=== PATIENT | female | born 1970 | race Caucasian/White ===

== ENCOUNTER 2022-06-04 02:58 | Inpatient (IN) | payer MEDICARE, OTHER ==
[~2022-06-04] VITALS: Ht 157.5 cm; Wt 81.4 kg
[2022-06-04 05:17] LABS: HEMOGLOBIN 16.4 gm/dl (12.3-15.3); RED BLOOD COUNT 5.25 M/UL (4.00-5.10)
[2022-06-04 05:26] LABS: WHITE BLOOD COUNT 32.7 K/UL (4.5-11.0)
[2022-06-04 06:00] LABS: BUN/CREATININE RATIO 17 (0-10)
[2022-06-04] MEDS ORDERED: SULFAMETHOXAZO1 EACH PO (09:19)
[2022-06-04] MEDS ORDERED: NAPROXEN500 MG PO (09:19)
[2022-06-04] MEDS ORDERED: COZAAR 25MG TAB25 MG PO (09:20)
[2022-06-04] MEDS ORDERED: PROVENTIL HFA6.7 GM INH (09:20)
[2022-06-04] MEDS ORDERED: HYDROCHLOROTHIA25 MG PO (09:21)
[2022-06-05 07:02] LABS: BUN/CREATININE RATIO 22 (0-10)
[2022-06-05 07:35] LABS: RED BLOOD COUNT 4.59 M/UL (4.00-5.10); WHITE BLOOD COUNT 33.5 K/UL (4.5-11.0)
[2022-06-06 06:12] LABS: RED BLOOD COUNT 4.44 M/UL (4.00-5.10); WHITE BLOOD COUNT 28.8 K/UL (4.5-11.0)
[2022-06-06 06:43] LABS: BUN/CREATININE RATIO 18 (0-10)
[2022-06-07 06:38] LABS: HEMOGLOBIN 12.9 gm/dl (12.3-15.3); RED BLOOD COUNT 4.32 M/UL (4.00-5.10)
[2022-06-07 07:09] LABS: BUN/CREATININE RATIO 14 (0-10)
[2022-06-08 07:24] LABS: HEMOGLOBIN 14.5 gm/dl (12.3-15.3); WHITE BLOOD COUNT 18.9 K/UL (4.5-11.0)
[2022-06-08 07:25] LABS: RED BLOOD COUNT 4.77 M/UL (4.00-5.10)
[2022-06-08 07:44] LABS: BUN/CREATININE RATIO 12 (0-10)
[2022-06-09 02:59] LABS: HEMOGLOBIN 13.1 gm/dl (12.3-15.3); RED BLOOD COUNT 4.3 M/UL (4.00-5.10); WHITE BLOOD COUNT 20.4 K/UL (4.5-11.0)
[2022-06-09 03:25] LABS: BUN/CREATININE RATIO 15 (0-10)
[2022-06-10 06:20] LABS: HEMOGLOBIN 13.5 gm/dl (12.3-15.3); RED BLOOD COUNT 4.5 M/UL (4.00-5.10); WHITE BLOOD COUNT 16.8 K/UL (4.5-11.0)
[2022-06-10 07:10] LABS: BUN/CREATININE RATIO 12 (0-10)
[2022-06-11 06:56] LABS: HEMOGLOBIN 13.5 gm/dl (12.3-15.3); RED BLOOD COUNT 4.49 M/UL (4.00-5.10); WHITE BLOOD COUNT 15.2 K/UL (4.5-11.0)
[2022-06-11 07:21] LABS: BUN/CREATININE RATIO 12 (0-10)
[2022-06-11] MEDS ORDERED: LEVOFLOXACIN500 MG PO (17:10)
[2022-06-11] MEDS ORDERED: TOPROL XL25 MG PO (17:10)
[2022-06-11] MEDS ORDERED: HYDROCODON-ACE1 EAC4 PO (17:10)
[2022-06-11] MEDS ORDERED: CLINDAMYCIN HC300 MG PO (17:10)
[2022-06-11] MEDS ORDERED: NICOTINE PATCH1 EAC2 TD (17:10)
[2022-06-11] MEDS ORDERED: COZAAR 50MG TAB50 MG PO (17:21)
--- NOTE | 2022-06-11 18:15 | NUR ---
06/11/22 1730 CM TO CALL AND FINISH SET UP WITH [facility]. DRESSING CHANGED AND PORTABLE WOUND VAC APPLIED
== END 2022-06-11 18:50 | disposition home health service (06) | DRG 871 ==
LOC: ER1 02:58 → CDU 08:37 → MED SURG 4 08:37
PROVIDERS: Internal Medicine; Physician Assistant; Physician Assistant Medical; Surgery; ADMIT Internal Medicine
PROC: 3E03329 Introduction of Other Anti-infective into Peripheral Vein, Percutaneous Approach (ICD-10-PCS; 2022-06-04)
PROC: 0HB5XZX Excision of Chest Skin, External Approach, Diagnostic (ICD-10-PCS; principal; 2022-06-04 16:14)
DX: A41.9 Sepsis, unspecified organism (principal); J96.01 Acute respiratory failure with hypoxia; Z20.822 Contact with and (suspected) exposure to COVID-19; J98.11 Atelectasis; E87.1 Hypo-osmolality and hyponatremia; I96 Gangrene, not elsewhere classified; R65.20 Severe sepsis without septic shock; F17.210 Nicotine dependence, cigarettes, uncomplicated; E66.9 Obesity, unspecified; I10 Essential (primary) hypertension; E87.6 Hypokalemia; F17.200 Nicotine dependence, unspecified, uncomplicated; Z90.12 Acquired absence of left breast and nipple; Z88.0 Allergy status to penicillin; Z99.81 Dependence on supplemental oxygen; Z98.890 Other specified postprocedural states; Z68.32 Body mass index [BMI] 32.0-32.9, adult
CPT/HCPCS: 0240U; 36415; 36600; 71045; 80048; 80053; 80202; 82803; 82962; 83605; 83735; 84703; 85025; 85027; 86140; 87040; 87070; 87077; 87081; 87205; 94664; 96374; 96375; 99284; C9113; J0692; J1100; J1335; J1650; J2270; J2405; J2704; J3010; J3370; J3480; J7030; J7070